=== PATIENT | female | born 1995 | race Caucasian/White ===

== ENCOUNTER 2017-06-24 21:11 | Emergency (ER) | payer OTHER ==
[~2017-06-24] VITALS: Ht 165.1 cm; Wt 64.9 kg
[2017-06-24] MEDS ORDERED: NO MEDICATIONS (22:12)
== END 2017-06-25 01:26 | disposition home or self-care (01) ==
LOC: SED 21:11
DX: J02.9 Acute pharyngitis, unspecified (principal)
CPT/HCPCS: 87651; 99284